=== PATIENT | female | born 1990 | race Caucasian/White ===

== ENCOUNTER 2018-06-21 11:09 | Emergency (ER) | payer BC, MEDICAID ==
[2018-06-21 11:41] VITALS: BP 160/85
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
[2018-06-21] MEDS ORDERED: LIDOCAINE JELLY 2% 5 ML TUBE TOP STA (13:51)
== END 2018-06-21 14:07 | disposition home or self-care (01) ==
LOC: ED 11:09
DX: T23.262A Burn of second degree of back of left hand, initial encounter (principal); T31.0 Burns involving less than 10% of body surface; X10.0XXA Contact with hot drinks, initial encounter
CPT/HCPCS: 99281; 99282; J3490

== ENCOUNTER 2019-04-13 08:00 | Outpatient (CLI) | payer BC, MEDICAID ==
[2019-04-13 13:39] LABS: BASOPHILS % (AUTO) 0.8 %; EOSINOPHILS # (AUTO) 0.1 10^3/uL (0.0-0.7); EOSINOPHILS % (AUTO) 1.3 %; LYMPHOCYTES # (AUTO) 1.6 10^3/uL (1.5-3.5); LYMPHOCYTES % (AUTO) 29.9 %; MEAN CORPUSCULAR HEMOGLOBIN 29.3 pg (27.0-31.0); MEAN CORPUSCULAR VOLUME 94.6 fL (81.0-99.0); MEAN PLATELET VOLUME 11.6 fL (7.9-10.8); MONOCYTES # (AUTO) 0.4 10^3/uL (0.0-1.0); MONOCYTES % (AUTO) 8.1 %; NEUTROPHILS # (AUTO) 3.2 10^3/uL (1.5-6.6); NEUTROPHILS % (AUTO) 59.7 %; PLT - PLATELET COUNT 219 10^3/uL (130-450); RED BLOOD COUNT 4.78 10^6/uL (4.20-5.40); RED CELL DISTRIBUTION WIDTH 12.6 % (12.0-15.0); WHITE BLOOD COUNT 5.3 x10^3/uL (4.8-10.8)
[2019-04-13 14:00] LABS: CALCIUM 9.7 mg/dL (8.5-10.3); CREATININE 0.9 mg/dL (0.4-1.0)
[2019-04-13 14:10] LABS: HEMOGLOBIN A1C 0.49 g/dL; HEMOGLOBIN A1C % 5.1 % (4.6-6.2)
== END 2019-04-13 08:30 | disposition home or self-care (01) ==
LOC: LAB.N 08:00
PROVIDERS: ATTEND Physician Assistant Medical
DX: R35.8 Other polyuria (principal); R42 Dizziness and giddiness
CPT/HCPCS: 36415; 80048; 83036; 84443; 85025

== ENCOUNTER 2019-11-14 14:31 | Outpatient (CLI) | payer BC | END 2019-11-14 14:32 | disposition home or self-care (01) | LOC: COV 14:31 | PROVIDERS: ATTEND Family Medicine | DX: R05 Cough (principal); R50.9 Fever, unspecified | CPT/HCPCS: 81599 ==

== ENCOUNTER 2020-12-23 17:54 | Outpatient (CLI) | payer BC ==
--- NOTE | 2020-12-24 08:25 | XRAY Report ---
PROCEDURE: Hand 3 View BILAT INDICATIONS: BILATERAL HAND PX TECHNIQUE: 3 views of the hand(s) acquired. COMPARISON: None FINDINGS: Bones: No fractures or dislocations. No suspicious bony lesions. Joint spaces are well preserved b ilaterally. No gross bony erosive changes are seen. Soft tissues: No suspicious soft tissue calcifications. IMPRESSION: Unremarkable radiographic examination of bilateral hands. No evidence of bony erosive changes. Reviewed by: Dylan Gore MD on 12/24/2020 8:24 AM PDT Approved by: Dylan Gore MD on 12/24/2020 8:24 AM PDT Station ID: [id number]
== END 2020-12-23 17:55 | disposition home or self-care (01) ==
LOC: DI.N 17:54
PROVIDERS: ATTEND Family Medicine
DX: M79.642 Pain in left hand (principal); M79.641 Pain in right hand

== ENCOUNTER 2020-12-24 17:10 | Outpatient (CLI) | payer BC ==
[2020-12-24 20:43] LABS: HCT - HEMATOCRIT 40.9 % (37.0-47.0); HGB - HEMOGLOBIN 13.2 g/dL (12.0-16.0); MEAN CORPUSCULAR HEMOGLOBIN 30.3 pg (27.0-31.0); MEAN CORPUSCULAR HGB CONC 32.3 g/dL (32.0-36.0); MEAN PLATELET VOLUME 11.1 fL (7.9-10.8); RED BLOOD COUNT 4.35 10^6/uL (4.20-5.40); RED CELL DISTRIBUTION WIDTH 12.8 % (12.0-15.0); WHITE BLOOD COUNT 7.2 x10^3/uL (4.8-10.8)
[2020-12-24 21:03] LABS: RHEUMATOID FACTOR NEGATIVE (Negative)
[2020-12-24 21:10] LABS: CRP - C-REACTIVE PROTEIN < 1.0 mg/dL (0-1.0); URIC ACID 4.1 mg/dL (2.6-7.2)
== END 2020-12-24 17:11 | disposition home or self-care (01) ==
LOC: LAB.N 17:10
PROVIDERS: ATTEND Family Medicine
DX: M79.642 Pain in left hand (principal); M79.641 Pain in right hand
CPT/HCPCS: 36415; 84550; 85025; 85027; 85651; 86140; 86200; 86430

== ENCOUNTER 2021-02-18 09:59 | Day surgery (SDC) | payer BC ==
[2021-02-18] MEDS ORDERED: LACTATED RINGERS 1,000 ML IV ONE (10:04)
[2021-02-18 10:30] LABS: HCG UR QUAL NEGATIVE
[2021-02-18] MEDS ORDERED: fentaNYL 250 MCG/5 ML VIAL ONE (12:36)
[2021-02-18] MEDS ORDERED: MIDAZOLAM 2 MG/2 ML VIAL ONE (12:36)
[2021-02-18 13:38] VITALS: BP 122/70
== END 2021-02-18 10:00 | disposition home or self-care (01) ==
LOC: SDS 09:59
PROVIDERS: ATTEND Surgery
DX: Z12.11 Encounter for screening for malignant neoplasm of colon (principal); Z80.0 Family history of malignant neoplasm of digestive organs; K64.8 Other hemorrhoids; K64.4 Residual hemorrhoidal skin tags
CPT/HCPCS: 45378; 81025; J3010; J7120

== ENCOUNTER 2021-12-16 14:27 | Outpatient (CLI) | payer BC ==
[2021-12-16 15:38] LABS: BASOPHILS % (AUTO) 0.5 %; EOSINOPHILS # (AUTO) 0.1 10^3/uL (0.0-0.7); EOSINOPHILS % (AUTO) 0.9 %; HCT - HEMATOCRIT 42.3 % (37.0-47.0); HGB - HEMOGLOBIN 13.8 g/dL (12.0-16.0); LYMPHOCYTES # (AUTO) 2.1 10^3/uL (1.5-3.5); LYMPHOCYTES % (AUTO) 28.1 %; MEAN CORPUSCULAR HGB CONC 32.6 g/dL (32.0-36.0); MEAN PLATELET VOLUME 9.7 fL (7.9-10.8); MONOCYTES # (AUTO) 0.7 10^3/uL (0.0-1.0); MONOCYTES % (AUTO) 8.9 %; NEUTROPHILS # (AUTO) 4.6 10^3/uL (1.5-6.6); NEUTROPHILS % (AUTO) 61.5 %; PLT - PLATELET COUNT 208 10^3/uL (130-450); RED CELL DISTRIBUTION WIDTH 12.7 % (12.0-15.0); WHITE BLOOD COUNT 7.6 x10^3/uL (4.8-10.8)
[2021-12-16 15:58] LABS: ALBUMIN 4.4 g/dL (3.2-5.5); ALBUMIN/GLOBULIN RATIO 1.3 (1.0-2.2); BILIRUBIN,TOTAL 0.7 mg/dL (0.2-1.0); CALCIUM 9.6 mg/dL (8.5-10.3); CREATININE 0.9 mg/dL (0.4-1.0); POTASSIUM 3.6 mmol/L (3.5-5.0); TOTAL PROTEIN 7.7 g/dL (6.7-8.2)
--- NOTE | 2021-12-17 07:19 | MRI Report ---
PROCEDURE: Brain W/O INDICATIONS: HEADACHE TECHNIQUE: Noncontrast axial T1 spin echo, axial T2 fast spin echo, sagittal and axial FLAIR, coronal T2 fast sp in echo, axial gradient echo, axial diffusion and ADC through the brain. COMPARISON: None. FINDINGS: Image quality: Excellent. CSF Spaces: Basal cisterns are patent. No extra-axial fluid collections. Ventricles are normal in size and shape. Brain: No intracranial masses or hemorrhage. Casanova/white matter interface is normal. Brainstem appe ars normal. Diffusion-weighted images demonstrate no acute ischemic insult. No chronic ischemic ins ults. Normal intravascular flow voids are present. Skull and face: Calvarium has normal marrow signal. Orbits appear normal. Sinuses: Sinuses and mastoids are clear. IMPRESSION: 1. No intracranial disease process. 2. No abnormal intracranial mass or mass effect. 3. No intracranial hemorrhage. Reviewed by: Deena Zavala MD, PhD on 12/17/2021 7:18 AM PDT Approved by: Deena Zavala MD, PhD on 12/17/2021 7:18 AM PDT Station ID: [id number]
== END 2021-12-16 14:28 | disposition home or self-care (01) ==
LOC: DI 14:27
PROVIDERS: ATTEND Physician Assistant
DX: R51.9 Headache, unspecified (principal)
CPT/HCPCS: 36415; 80053; 84146; 85025

== ENCOUNTER 2022-05-06 10:04 | Outpatient (CLI) | payer BC ==
[2022-05-06 10:29] LABS: BASOPHILS % (AUTO) 0.2 %; EOSINOPHILS % (AUTO) 0.4 %; HCT - HEMATOCRIT 39.7 % (37.0-47.0); HGB - HEMOGLOBIN 13.2 g/dL (12.0-16.0); LYMPHOCYTES # (AUTO) 1.4 10^3/uL (1.5-3.5); LYMPHOCYTES % (AUTO) 17.5 %; MEAN CORPUSCULAR HEMOGLOBIN 30.1 pg (27.0-31.0); MEAN CORPUSCULAR HGB CONC 33.2 g/dL (32.0-36.0); MEAN CORPUSCULAR VOLUME 90.6 fL (81.0-99.0); MONOCYTES # (AUTO) 0.4 10^3/uL (0.0-1.0); MONOCYTES % (AUTO) 4.8 %; NEUTROPHILS # (AUTO) 6.3 10^3/uL (1.5-6.6); NEUTROPHILS % (AUTO) 76.9 %; PLT - PLATELET COUNT 202 10^3/uL (130-450); RED BLOOD COUNT 4.38 10^6/uL (4.20-5.40); WHITE BLOOD COUNT 8.2 x10^3/uL (4.8-10.8)
[2022-05-06 10:44] LABS: ALBUMIN 3.7 g/dL (3.2-5.5); ALBUMIN/GLOBULIN RATIO 1.2 (1.0-2.2); BILIRUBIN,TOTAL 0.3 mg/dL (0.2-1.0); CALCIUM 9.5 mg/dL (8.5-10.3); CREATININE 0.5 mg/dL (0.4-1.0); POTASSIUM 3.8 mmol/L (3.5-5.0); TOTAL PROTEIN 6.9 g/dL (6.7-8.2)
[2022-05-06 11:10] LABS: BILIRUBIN,URINE NEGATIVE (NEGATIVE); GLUCOSE, URINE (UA) NEGATIVE (NEGATIVE); KETONES,URINE (UA) NEGATIVE (NEGATIVE); LEUKOCYTE ESTERASE, URINE MODERATE (NEGATIVE); NITRITE,URINE NEGATIVE (NEGATIVE); OCCULT BLOOD,URINE TRACE-INTA (NEGATIVE); PROTEIN,URINE NEGATIVE (NEGATIVE); UROBILINOGEN,URINE 0.2 (NORMAL) E.U./dL (NORMAL)
[2022-05-06 11:11] LABS: CLARITY,URINE CLOUDY (CLEAR)
[2022-05-06 11:21] LABS: BACTERIA,URINE Many /HPF (None Seen); SQUAMOUS EPITHELIAL CELL,UR MANY Squamous (<= Few); WBC,URINE >25 /HPF (0-5)
[2022-05-07 06:09] LABS: HBsAG SCREEN Negative (Negative); HCV AB <0.1 s/co ratio (0.0-0.9); HIV SCREEN 4TH GENERATION Non Reactive (Non Reactive); RPR Non Reactive (Non Reactive)
[2022-05-07 15:09] LABS: VARICELLA-ZOSTER AB IGG 862 index (Immune >165)
== END 2022-05-06 10:05 | disposition home or self-care (01) ==
LOC: LAB 10:04
PROVIDERS: ATTEND Obstetrics & Gynecology
DX: Z36.89 Encounter for other specified antenatal screening (principal); O99.891 Other specified diseases and conditions complicating pregnancy; R51.9 Headache, unspecified; R31.9 Hematuria, unspecified
CPT/HCPCS: 36415; 80053; 81001; 84146; 85025; 86592; 86762; 86787; 86803; 86850; 86900; 86901; 87086; 87340; 87389

== ENCOUNTER → 2022-05-07 | Outpatient (CLI) | payer BC ==
[2022-05-07 16:55] LABS: BILIRUBIN,URINE NEGATIVE (NEGATIVE); CLARITY,URINE CLEAR (CLEAR); GLUCOSE, URINE (UA) NEGATIVE (NEGATIVE); KETONES,URINE (UA) NEGATIVE (NEGATIVE); LEUKOCYTE ESTERASE, URINE TRACE (NEGATIVE); NITRITE,URINE NEGATIVE (NEGATIVE); OCCULT BLOOD,URINE NEGATIVE (NEGATIVE); PROTEIN,URINE NEGATIVE (NEGATIVE); UROBILINOGEN,URINE 0.2 (NORMAL) E.U./dL (NORMAL)
[2022-05-07 17:01] LABS: RBC,URINE 0-5 /HPF (0-5); SQUAMOUS EPITHELIAL CELL,UR FEW Squamous (<= Few)
[2022-05-07 17:02] LABS: BACTERIA,URINE Few /HPF (None Seen); CRYSTALS,URINE 3-5 Calcium Oxalate /LPF; MUCUS,URINE Marked Strands
== END ==
LOC: LAB 08:00
PROVIDERS: ATTEND Obstetrics & Gynecology
DX: R31.9 Hematuria, unspecified (principal)
CPT/HCPCS: 81001; 87086

== ENCOUNTER 2022-06-01 14:25 | Outpatient (CLI) | payer BC ==
--- NOTE | 2022-06-01 16:57 | Ultrasound Report ---
PROCEDURE: OB Detailed Eval INDICATIONS: SUPERVISION OF OUTSIDE/PRIOR DATING DATA: Last menstrual period (LMP): Unknown. LMP-based estimated date of delivery (RAYRAY): Not applicable. First dating scan (date and location): 03/25/2022. Estimated date of delivery (RAYRAY) from first dating scan: 10/22/2022. TECHNIQUE: Real-time scanning was performed of the fetus, with image documentation and biometric measurements. Endovaginal scanning: No COMPARISON: None. FINDINGS: General: A single living intrauterine gestation is present. Presentation: Variable Placenta: Placental position is posterior, without previa. Amniotic fluid index: 14 cm heart rate: 150 beats per minute. Maternal cervical canal: 3.9 cm long; normal length is 2.5 cm or more. biometrics: Biparietal diameter: 44 mm; 19 weeks 2 days Head circumference: 168 mm; 19 weeks 3 days Abdominal circumference: 145 mm; 19 weeks 5 days Femur length: 29 mm; 18 weeks 6 days Estimated gestational age from initial scan: 19 weeks 4 days. Composite gestational age from present scan: 19 weeks 2 days Estimated weight and percentile: 289 g, which is at the 34th percentile for gestational age Measurement variability in biometric dating: +/- 10 days from 12-20 weeks gestation, +/- 2 weeks from 20-30 weeks gestation, +/- 3 weeks at 30 weeks gestation or later. Anatomic survey: Neuro: Ventricles are normal at less than 10 mm. Cisterna magna is normal at 3-11 mm. Cerebellum i s normal in size and morphology. Nuchal skin fold: Normal at less than 6 mm between 14 and 20 weeks gestational age. Face: Nose and lips, facial profile are normal. Spine: No evidence for spina bifida. Heart: 4-chambered heart is present. Outflow tracts are not well seen. Diaphragm: Diaphragm is intact. Stomach: Left-sided stomach is present. Kidneys: No hydronephrosis. Normal is less than 5 mm in 2nd trimester, less than 7 mm in 3rd trimester. Cord: 3 vessel cord has orthotopic insertion. Bladder: Normal in size. Extremities: All 4 extremities are visualized. IMPRESSION: 1. Single living intrauterine gestation. 2. Appropriate interval growth. 3. Cardiac outflow tracts not well seen. Reviewed by: Lizize Prather MD on 06/01/2022 4:56 PM PDT Approved by: Lizzie Prather MD on 06/01/2022 4:56 PM PDT Station ID: [id number]
== END 2022-06-01 14:26 | disposition home or self-care (01) ==
LOC: DI 14:25
PROVIDERS: ATTEND Obstetrics & Gynecology
DX: Z34.82 Encounter for supervision of other normal pregnancy, second trimester (principal); Z36.89 Encounter for other specified antenatal screening

== ENCOUNTER 2022-06-09 13:22 | Outpatient (CLI) | payer BC ==
[2022-06-12 11:10] LABS: AFP MOM See interpretation. (.); AFP VALUE 33.4 ng/mL (.); DIA MOM See interpretation. (.); DIA VALUE 156.31 pg/mL (.); DSR (BY AGE) 1 IN 527 (.); DSR (SECOND TRIMESTER) 1 IN See interpretation. (.); GESTAT. AGE METHOD As provided (.); HCG MOM See interpretation. (.); HCG VALUE 14938 mIU/mL (.); OPEN SPINA BIFIDA RISK 1 IN See interpretation. (.); RESULTS Report (.); TEST RESULTS See interpretation. (.); TRISOMY 18 RISK See interpretation. (.); UE3 MOM See interpretation. (.); UE3 VALUE 2.21 ng/mL (.)
== END 2022-06-09 13:23 | disposition home or self-care (01) ==
LOC: LAB 13:22
PROVIDERS: ATTEND Obstetrics & Gynecology
DX: Z34.80 Encounter for supervision of other normal pregnancy, unspecified trimester (principal)
CPT/HCPCS: 36416; 81511

== ENCOUNTER 2022-06-17 14:31 | Outpatient (CLI) | payer BC ==
--- NOTE | 2022-06-17 17:25 | Ultrasound Report ---
PROCEDURE: OB F/U or Repeat INDICATIONS: SUPERVISION OF OUTSIDE/PRIOR DATING DATA: Last menstrual period (LMP): Unknown. LMP-based estimated date of delivery (RAYRAY): Unknown. First dating scan (date and location): 03/25/2022. Estimated date of delivery (RAYRAY) from first dating scan: 10/22/2022. The below data below was generated using the ultrasound RAYRAY of 10/22/2022 TECHNIQUE: Real-time scanning was performed of the fetus, with image documentation and biometric measurements. COMPARISON: 06/01/2022. FINDINGS: General: A single living intrauterine gestation is present. Presentation: Breech Placenta: Placental position is posterior, without previa. Amniotic fluid index: 14.9 cm, normal for gestational age. Largest pocket 4.8 cm. heart rate: 162 beats per minute. Maternal cervical canal: 6.3 cm long; normal length is 2.5 cm or more. Estimated gestational age from initial scan: 21 weeks 6 days Other: LVOT and four-chamber view of the heart are within normal limits. The RVOT is again not well s een due to positioning. IMPRESSION: 1. Perez living intrauterine at 21 weeks 6 days based on prior ultrasound. 2. Normal placenta and amniotic fluid. 3. Four-chamber view of the heart and LVOT are within normal limits. The RVOT is again seen due to position. Recommend follow-up OB ultrasound. Reviewed by: Wes Rod MD on 06/17/2022 5:24 PM PDT Approved by: Wes Rod MD on 06/17/2022 5:24 PM PDT Station ID: [id number]
== END 2022-06-17 14:32 | disposition home or self-care (01) ==
LOC: DI 14:31
PROVIDERS: ATTEND Obstetrics & Gynecology
DX: Z34.82 Encounter for supervision of other normal pregnancy, second trimester (principal); Z3A.21 21 weeks gestation of pregnancy

== ENCOUNTER 2022-07-03 15:08 | Outpatient (CLI) | payer BC ==
--- NOTE | 2022-07-03 16:59 | Ultrasound Report ---
PROCEDURE: OB F/U or Repeat INDICATIONS: SUPERVISION OF evaluate RVOT. Previous survey with suboptimal RVOT view . OUTSIDE/PRIOR DATING DATA: Last menstrual period (LMP): Unknown. LMP-based estimated date of delivery (RAYRAY): Unknown. First dating scan (date and location): 03/25/2022. Estimated date of delivery (RAYRAY) from first dating scan: 10/22/2022. The below data below was generated using the ultrasound RAYRAY of 10/22/2022 TECHNIQUE: Real-time scanning was performed of the fetus, with image documentation and biometric measurements. Endovaginal scanning: Not performed COMPARISON: 06/01/2022, 06/17/2022 FINDINGS: General: A single living intrauterine gestation is present. Presentation: Transverse, variable Placenta: Placental position is posterior, without previa. Amniotic fluid index: 13.6 cm, within normal limits for gestational age. Largest pocket is 3.96 cm heart rate: 141 beats per minute. Maternal cervical canal: 4.8 cm long; normal length is 2.5 cm or more. Other: RVOT well evaluated, within normal limits. IMPRESSION: Living late second trimester intrauterine with no evidence of complications. N ormal RVOT completes the survey. Reviewed by: Daniel Rivers MD on 07/03/2022 4:57 PM PST Approved by: Daniel Rivers MD on 07/03/2022 4:57 PM PST Station ID: [id number]
== END 2022-07-03 15:09 | disposition home or self-care (01) ==
LOC: DI 15:08
PROVIDERS: ATTEND Obstetrics & Gynecology
DX: Z34.82 Encounter for supervision of other normal pregnancy, second trimester (principal); Z3A.00 Weeks of gestation of pregnancy not specified

== ENCOUNTER 2022-07-22 10:38 | Outpatient (CLI) | payer BC ==
[2022-07-22 12:14] LABS: HCT - HEMATOCRIT 39.9 % (37.0-47.0); HGB - HEMOGLOBIN 13.1 g/dL (12.0-16.0); MEAN CORPUSCULAR HGB CONC 32.8 g/dL (32.0-36.0); MEAN CORPUSCULAR VOLUME 91.3 fL (81.0-99.0); MEAN PLATELET VOLUME 10.1 fL (7.9-10.8); RED BLOOD COUNT 4.37 10^6/uL (4.20-5.40); RED CELL DISTRIBUTION WIDTH 12.4 % (12.0-15.0); WHITE BLOOD COUNT 10.3 x10^3/uL (4.8-10.8)
[2022-07-22 12:21] LABS: CREATININE,URINE 348.8 mg/dL; PROTEIN/CREATININE RATIO,URINE 0.1 (<=0.2)
[2022-07-22 12:31] LABS: ALBUMIN 3.4 g/dL (3.2-5.5); ALBUMIN/GLOBULIN RATIO 0.9 (1.0-2.2); BILIRUBIN,TOTAL 0.3 mg/dL (0.2-1.0); CALCIUM 9.2 mg/dL (8.5-10.3); CREATININE 0.8 mg/dL (0.4-1.0); POTASSIUM 3.9 mmol/L (3.5-5.0)
== END 2022-07-22 10:39 | disposition home or self-care (01) ==
LOC: LAB 10:38
PROVIDERS: ATTEND Obstetrics & Gynecology
DX: O99.891 Other specified diseases and conditions complicating pregnancy (principal); R03.0 Elevated blood-pressure reading, without diagnosis of hypertension; Z36.89 Encounter for other specified antenatal screening
CPT/HCPCS: 36415; 80053; 82570; 82950; 84156; 85027

== ENCOUNTER 2022-08-19 12:34 | Outpatient (CLI) | payer BC ==
[2022-08-19 12:47] LABS: HCT - HEMATOCRIT 40.4 % (37.0-47.0); HGB - HEMOGLOBIN 13.1 g/dL (12.0-16.0); MEAN CORPUSCULAR HEMOGLOBIN 29.5 pg (27.0-31.0); MEAN CORPUSCULAR HGB CONC 32.4 g/dL (32.0-36.0); MEAN PLATELET VOLUME 10.1 fL (7.9-10.8); RED BLOOD COUNT 4.44 10^6/uL (4.20-5.40); RED CELL DISTRIBUTION WIDTH 12.5 % (12.0-15.0); WHITE BLOOD COUNT 11.8 x10^3/uL (4.8-10.8)
[2022-08-19 12:55] LABS: CREATININE,URINE 31.7 mg/dL; TOTAL PROTEIN,URINE TIMED < 6 mg/dL
[2022-08-19 12:59] LABS: ALBUMIN 3.3 g/dL (3.2-5.5); ALBUMIN/GLOBULIN RATIO 0.9 (1.0-2.2); BILIRUBIN,TOTAL 0.5 mg/dL (0.2-1.0); CREATININE 0.6 mg/dL (0.4-1.0); POTASSIUM 3.9 mmol/L (3.5-5.0); TOTAL PROTEIN 6.9 g/dL (6.7-8.2)
== END 2022-08-19 12:35 | disposition home or self-care (01) ==
LOC: LAB 12:34
PROVIDERS: ATTEND Obstetrics & Gynecology
DX: R03.0 Elevated blood-pressure reading, without diagnosis of hypertension (principal)
CPT/HCPCS: 36415; 80053; 82570; 84156; 85027

== ENCOUNTER 2022-09-12 09:04 | Outpatient (CLI) | payer BC ==
[2022-09-12] MEDS ORDERED: LABETALOL 100 MG TABLET PO ONE (10:00)
[2022-09-12] MEDS ORDERED: LABETALOL 100 MG TABLET PO SCH (10:00)
[2022-09-12 10:08] LABS: BASOPHILS % (AUTO) 0.3 %; EOSINOPHILS % (AUTO) 0.4 %; HGB - HEMOGLOBIN 13.1 g/dL (12.0-16.0); LYMPHOCYTES # (AUTO) 1.7 10^3/uL (1.5-3.5); LYMPHOCYTES % (AUTO) 15.5 %; MEAN CORPUSCULAR HEMOGLOBIN 29.5 pg (27.0-31.0); MEAN CORPUSCULAR HGB CONC 32.8 g/dL (32.0-36.0); MEAN CORPUSCULAR VOLUME 90.1 fL (81.0-99.0); MEAN PLATELET VOLUME 10.4 fL (7.9-10.8); MONOCYTES # (AUTO) 0.6 10^3/uL (0.0-1.0); MONOCYTES % (AUTO) 5.2 %; NEUTROPHILS # (AUTO) 8.5 10^3/uL (1.5-6.6); NEUTROPHILS % (AUTO) 78.2 %; PLT - PLATELET COUNT 200 10^3/uL (130-450); RED BLOOD COUNT 4.44 10^6/uL (4.20-5.40); RED CELL DISTRIBUTION WIDTH 12.6 % (12.0-15.0); WHITE BLOOD COUNT 10.8 x10^3/uL (4.8-10.8)
[2022-09-12 10:26] LABS: ALBUMIN 2.9 g/dL (3.2-5.5); ALBUMIN/GLOBULIN RATIO 0.9 (1.0-2.2); BILIRUBIN,TOTAL 0.5 mg/dL (0.2-1.0); CREATININE 0.6 mg/dL (0.4-1.0); POTASSIUM 3.4 mmol/L (3.5-5.0); TOTAL PROTEIN 6.3 g/dL (6.7-8.2)
[2022-09-12 10:32] LABS: CREATININE,URINE 17.6 mg/dL; TOTAL PROTEIN,URINE TIMED < 6 mg/dL
[2022-09-12 10:45] VITALS: BP 148/84
--- NOTE | 2022-09-12 11:00 | PROVIDER PROGRESS NOTE ---
- HPI Chief Complaint: Hypertension/PIH Current : Vital Signs Temperature 97.9 F 09/12/22 09:08 Heart Rate 96 09/12/22 09:08 Respiratory Rate 16 09/12/22 09:08 Blood Pressure 148/91 H 09/12/22 09:08 Temperature 97.9 F 09/12/22 09:08 Heart Rate 96 09/12/22 09:08 Respiratory Rate 16 09/12/22 09:08 Blood Pressure 148/84 H 09/12/22 10:52 O2 Saturation If not protocol: Oxygen Flow, liters/minute - Procedures OB Procedure Performed: NST Diagnosis/Indication for NST: Gestational Hypertension NST Procedure: NST Procedure Start Time 10:15 Stop Time 10:42 EFM: 140s, moderate variability, positive accelerations 15x15, no decelerations [place]: no contractions NST reactive/Cat 1 Performed and read 09/12/22 Service Date of procedure: 09/12/22 - Plan Plan: 31yo at 34.3w presented to [facility] for scheduled NST for recently diagnosed gestational hypertension. Feels well. Denies headache, visual changes, abdominal pain, or n/v. Good movement. BP today 148/91, 150/86. Discussed starting medication. Labetalol 300mg po given in triage, tolerated well. Repeat BP 148/84. VS reviewed GEN: NAD CV: Regular rate Resp: Breathing unlabored Abd: soft, nt Ext: nt NST reactive 31yo at 34.3w with gestational hypertension - NST reactive - PET labs normal today - Start labetalol 300mg q8h - Patient may monitor BP, if increases will add nifedipine - Growth US ordered - Follow up as scheduled in office, continue NSTs - She is planning for IOL after 37 weeks
== END 2022-09-12 11:05 | disposition home or self-care (01) ==
LOC: WFO 09:04 → FBP 09:38 → WFO 11:05
PROVIDERS: ATTEND Obstetrics & Gynecology
DX: O13.3 Gestational [pregnancy-induced] hypertension without significant proteinuria, third trimester (principal); Z3A.34 34 weeks gestation of pregnancy
CPT/HCPCS: 36415; 59025; 80053; 82570; 84156; 85025; 99215; A9270

== ENCOUNTER 2022-09-15 21:13 | Outpatient (CLI) | payer BC ==
--- NOTE | 2022-09-16 10:55 | Ultrasound Report ---
PROCEDURE: OB F/U or Repeat INDICATIONS: THIRD TRIMESTER GESTATIONAL HYPERTENSION OUTSIDE/PRIOR DATING DATA: Last menstrual period (LMP): Unknown. LMP-based estimated date of delivery (RAYRAY): Not applicable. First dating scan (date and location): 03/25/2022. Estimated date of delivery (RAYRAY) from first dating scan: 10/22/2022. The below data below was generated using the ultrasound RAYRAY of 10/22/2022 TECHNIQUE: Real-time scanning was performed of the fetus, with image documentation and biometric measurements. Endovaginal scanning: Not performed COMPARISON: Several prior studies, the most recent from 09/10/2022 FINDINGS: General: A single living intrauterine gestation is present. Presentation: Vertex Placenta: Placental position is posterior, without previa. Amniotic fluid index: 10.2 cm, largest pocket is 3.3 cm, normal for gestational age. heart rate: 136 beats per minute. Maternal cervical canal: Not seen biometrics: Biparietal diameter: 8.3 cm, 33 weeks, 4 days Head circumference: 31.4 cm, 35 weeks, 1 day Abdominal circumference: 29.0 cm, 33 weeks, 0 days Femur length: 6.3 cm, 32 weeks, 4 days Estimated gestational age from initial scan: 34 weeks, 5 days. Composite gestational age from present scan: 33 weeks, 4 days Estimated weight and percentile: 2139 g, 11th percentile Measurement variability in biometric dating: +/- 10 days from 12-20 weeks gestation, +/- 2 weeks from 20-30 weeks gestation, +/- 3 weeks at 30 weeks gestation or more. Other: Incidental note of nuchal cord. IMPRESSION: 1. Single living intrauterine in vertex presentation. 2. Estimated weight at the 11th percentile. 3. Composite gestational age by today's measurements 1 week and 1 day behind the initially assigned g estational age. 4. Normal amniotic fluid volume. Reviewed by: Marilia Ye MD on 09/16/2022 9:54 AM [facility] Approved by: Marilia Ye MD on 09/16/2022 9:54 AM [facility] Station ID: [id number]
== END 2022-09-15 21:14 | disposition home or self-care (01) ==
LOC: DI 21:13
PROVIDERS: ATTEND Obstetrics & Gynecology
DX: O13.3 Gestational [pregnancy-induced] hypertension without significant proteinuria, third trimester (principal); Z3A.33 33 weeks gestation of pregnancy

== ENCOUNTER 2022-09-16 09:28 | Outpatient (CLI) | payer BC ==
[2022-09-16 09:49] VITALS: BP 139/93
--- NOTE | 2022-09-16 10:16 | PROCEDURE REPORT ---
- HPI Diagnosis/Indication for NST: Gestational Hypertension Current EDU 10/21/22 Gestation 35 Weeks and 0 Days 3 Para 2 Vital Signs Temperature 99.0 F 09/16/22 09:35 Heart Rate 93 09/16/22 09:35 Respiratory Rate 18 09/16/22 09:35 Blood Pressure 139/93 H 09/16/22 09:35 Temperature 99.0 F 09/16/22 09:35 Heart Rate 93 09/16/22 09:35 Respiratory Rate 18 09/16/22 09:35 Blood Pressure 139/93 H 09/16/22 09:35 O2 Saturation If not protocol: Oxygen Flow, liters/minute - NST Procedure NST Procedure Start Date 09/16/22 Start Time 09:39 Stop Time 09:59 Patient States Movement Yes - Results and Plan Findings/Impression: Patient is a 31-year-old -0-0-2 at 35 weeks 0 days gestation here for scheduled NST. NST Performed 09/16/2022 NST Read 09/16/2022 FHT: 145 bpm baseline, moderate variability, accelerations present, no decelerations. Reactive NST [place]: Quiescent Diagnosis 35 weeks gestation Gestational hypertension Continue with twice weekly NST.
== END 2022-09-16 10:15 | disposition home or self-care (01) ==
LOC: WFO 09:28 → FBP 09:30 → WFO 10:15
PROVIDERS: ATTEND Obstetrics & Gynecology
DX: O13.3 Gestational [pregnancy-induced] hypertension without significant proteinuria, third trimester (principal); Z3A.35 35 weeks gestation of pregnancy
CPT/HCPCS: 59025

== ENCOUNTER 2022-09-17 07:47 | Outpatient (CLI) | payer BC ==
--- NOTE | 2022-09-17 14:00 | Ultrasound Report ---
PROCEDURE: OB Biophysical Profile INDICATIONS: GESTATIONAL HYPERTENSION OUTSIDE/PRIOR DATING DATA: Last menstrual period (LMP): Unknown. LMP-based estimated date of delivery (RAYRAY): Not applicable. First dating scan (date and location): 03/25/2022. Estimated date of delivery (RAYRAY) from first dating scan: 10/22/2022. The below data below was generated using the ultrasound generated RAYRAY of 3-23 TECHNIQUE: Real-time scanning was performed of the fetus, with image documentation and biometric della surements. Biophysical profile was also obtained. Endovaginal scanning: Not performed COMPARISON: 09/15/2022, 09/10/2022, 07/03/2022, 06/17/2022, 06/01/2022, 03/25/2022 FINDINGS: General: A single living intrauterine gestation is present. Presentation: Vertex Placenta: Placental position is maternal left, without previa. Amniotic fluid index: 7.5 cm, low for gestational age at the 4th percentile. Largest pocket 4.1 cm. heart rate: 140 beats per minute. Maternal cervical canal: 3.8 cm long and closed; normal length is 2.5 cm or more. Biophysical profile: Tone: 2 points. Movement: 2 points. Respiration: 2 points. Largest pocket of fluid: 2 points. Umbilical artery Doppler: S/D ratios are 2.3, 2.0, and 2.4 at the placenta, mid segment, and u mbilicus, respectively. IMPRESSION: Single living intrauterine gestation with oligohydramnios. Cord Doppler S/D ratios above. Reviewed by: Kenneth Goodman MD on 09/17/2022 1:59 PM PST Approved by: Kenneth Goodman MD on 09/17/2022 1:59 PM PST Station ID: [id number]
== END 2022-09-17 07:48 | disposition home or self-care (01) ==
LOC: DI 07:47
PROVIDERS: ATTEND Obstetrics & Gynecology
DX: O41.03X0 Oligohydramnios, third trimester, not applicable or unspecified (principal); O13.3 Gestational [pregnancy-induced] hypertension without significant proteinuria, third trimester; Z3A.00 Weeks of gestation of pregnancy not specified

== ENCOUNTER 2022-09-21 09:17 | Outpatient (CLI) | payer BC ==
[2022-09-21 10:15] LABS: BASOPHILS % (AUTO) 0.3 %; EOSINOPHILS # (AUTO) 0.1 10^3/uL (0.0-0.7); EOSINOPHILS % (AUTO) 0.4 %; HCT - HEMATOCRIT 39.5 % (37.0-47.0); HGB - HEMOGLOBIN 12.9 g/dL (12.0-16.0); LYMPHOCYTES # (AUTO) 1.5 10^3/uL (1.5-3.5); LYMPHOCYTES % (AUTO) 13.7 %; MEAN CORPUSCULAR HEMOGLOBIN 29.3 pg (27.0-31.0); MEAN CORPUSCULAR HGB CONC 32.7 g/dL (32.0-36.0); MEAN CORPUSCULAR VOLUME 89.8 fL (81.0-99.0); MEAN PLATELET VOLUME 10.7 fL (7.9-10.8); MONOCYTES # (AUTO) 0.6 10^3/uL (0.0-1.0); MONOCYTES % (AUTO) 5.3 %; NEUTROPHILS % (AUTO) 79.9 %; PLT - PLATELET COUNT 218 10^3/uL (130-450); RED CELL DISTRIBUTION WIDTH 12.4 % (12.0-15.0); WHITE BLOOD COUNT 11.2 x10^3/uL (4.8-10.8)
[2022-09-21 10:27] LABS: ALBUMIN 2.9 g/dL (3.2-5.5); ALBUMIN/GLOBULIN RATIO 0.9 (1.0-2.2); BILIRUBIN,TOTAL 0.5 mg/dL (0.2-1.0); CALCIUM 8.7 mg/dL (8.5-10.3); CREATININE 0.5 mg/dL (0.4-1.0); POTASSIUM 3.3 mmol/L (3.5-5.0); TOTAL PROTEIN 6.2 g/dL (6.7-8.2)
[2022-09-21 10:30] VITALS: BP 143/80
[2022-09-21 10:55] LABS: CREATININE,URINE 37.4 mg/dL; TOTAL PROTEIN,URINE TIMED < 6 mg/dL
--- NOTE | 2022-09-21 11:30 | PROCEDURE REPORT ---
- HPI Diagnosis/Indication for NST: Gestational Hypertension Vital Signs Temperature 98.2 F 09/21/22 09:34 Heart Rate 103 H 09/21/22 09:34 Respiratory Rate 18 09/21/22 09:34 Blood Pressure 136/94 H 09/21/22 09:34 O2 Saturation 99 09/21/22 09:34 Temperature 98.2 F 09/21/22 09:36 Heart Rate 93 09/21/22 10:28 Respiratory Rate 16 09/21/22 10:28 Blood Pressure 143/80 H 09/21/22 10:28 O2 Saturation 99 09/21/22 10:28 If not protocol: Oxygen Flow, liters/minute - NST Procedure NST Procedure Start Time 09:39 Stop Time 10:20 FHT: Category 1 Baseline heart rate: 140s Moderate variability Present acceleration Absent deceleration 31yo presented to [facility] for scheduled NST for recently diagnosed gestational hypertension. Feels well. Denies headache, visual changes, abdominal pain, or n/v. Good movement. BP today 148/91, 150/86. Has been on Labetalol 300mg po, tolerated well. Repeat BP 148/80 140/84. VS reviewed GEN: NAD CV: Regular rate Resp: Breathing unlabored Abd: soft, nt Ext: nt NST reactive 31yo at 34.3w with gestational hypertension - NST reactive - PET labs normal today - labetalol 300mg q8h - Patient may monitor BP, if increases will add nifedipine - Follow up as scheduled in office, continue NSTs and BPP - She is planning for IOL after 37 weeks ( 09-30-22) - Results and Plan Findings/Impression: Reactive Plan: As scheduled
== END 2022-09-21 11:35 | disposition home or self-care (01) ==
LOC: WFO 09:17 → FBP 09:18 → WFO 11:35
PROVIDERS: ATTEND Obstetrics & Gynecology
DX: O13.3 Gestational [pregnancy-induced] hypertension without significant proteinuria, third trimester (principal); Z3A.34 34 weeks gestation of pregnancy
CPT/HCPCS: 36415; 59025; 80053; 82570; 84156; 85025; 99215

== ENCOUNTER 2022-09-23 10:04 | Outpatient (CLI) | payer BC ==
[2022-09-23 10:26] VITALS: BP 140/87
--- NOTE | 2022-09-23 10:38 | PROCEDURE REPORT ---
- HPI Diagnosis/Indication for NST: Gestational Hypertension Current EDU 10/21/22 Gestation 36 Weeks and 0 Days 3 Para 2 Vital Signs Temperature 98.2 F 09/23/22 10:14 Heart Rate 83 09/23/22 10:14 Respiratory Rate 16 09/23/22 10:14 Blood Pressure 140/87 H 09/23/22 10:14 Temperature 98.2 F 09/23/22 10:14 Heart Rate 83 09/23/22 10:14 Respiratory Rate 16 09/23/22 10:14 Blood Pressure 140/87 H 09/23/22 10:14 O2 Saturation If not protocol: Oxygen Flow, liters/minute - NST Procedure NST Procedure Start Date 09/23/22 Start Time 10:16 Stop Time 10:10 Vibroacoustic Stimulation Used No Patient States Movement Yes - Results and Plan Plan: Patient is a 31-year-old -0-0-2 at 36 weeks 0 days gestation here for scheduled NST. NST Performed 09/23/2022 NST Read 09/23/2022 FHT: 130 bpm baseline, moderate variability, accelerations present, no decelerations. Reactive NST [place]: Quiescent Diagnosis 36 weeks gestation Gestational hypertension Continue with twice weekly NST.
== END 2022-09-23 10:50 | disposition home or self-care (01) ==
LOC: WFO 10:04 → FBP 10:06 → WFO 10:50
PROVIDERS: ATTEND Obstetrics & Gynecology
DX: O13.3 Gestational [pregnancy-induced] hypertension without significant proteinuria, third trimester (principal); Z3A.36 36 weeks gestation of pregnancy
CPT/HCPCS: 59025

== ENCOUNTER 2022-09-23 14:39 | Outpatient (CLI) | payer BC ==
--- NOTE | 2022-09-23 17:38 | Ultrasound Report ---
PROCEDURE: OB Biophysical Profile INDICATIONS: GESTATIONAL HYPERTENSION OUTSIDE/PRIOR DATING DATA: Last menstrual period (LMP): Unknown. LMP-based estimated date of delivery (RAYRAY): Unknown. First dating scan (date and location): 03/25/2022. Estimated date of delivery (RAYRAY) from first dating scan: 10-22-22. The below data below was generated using the ultrasound RAYRAY of 10-22-22 TECHNIQUE: Real-time scanning was performed of the fetus, with image documentation and biometric della surements. Biophysical profile was also obtained. COMPARISON: OB ultrasound 09/17/2022 FINDINGS: General: A single living intrauterine gestation is present. Presentation: Vertex Placenta: Placental position is posterior, without previa. Amniotic fluid index: 7 cm, 3.1 percentile for gestational age. Largest pocket 2.3 cm heart rate: 1:30 beats per minute. Maternal cervical canal: 4.1 cm long; normal length is 2.5 cm or more. biometrics: Estimated gestational age from initial scan: 35 weeks 6 days Biophysical profile: Tone: 2 points. Movement: 2 points. Respiration: 2 points. Largest pocket of fluid: 2 points. Umbilical artery Doppler: 2.2, 2.2, 2.3 at the cord insertion, mid and umbilical regions respectivel y. IMPRESSION: Single live anterior with a gestational age of 35 weeks 6 days. Persistent oligohydramnios measuring 3.1 percentile, compared to 4th percentile on prior exam. Reviewed by: Yareli Pichardo MD on 09/23/2022 5:36 PM PST Approved by: Yareli Pichardo MD on 09/23/2022 5:36 PM PST Station ID: [id number]
== END 2022-09-23 14:40 | disposition home or self-care (01) ==
LOC: DI 14:39
PROVIDERS: ATTEND Obstetrics & Gynecology
DX: O13.3 Gestational [pregnancy-induced] hypertension without significant proteinuria, third trimester (principal); Z3A.35 35 weeks gestation of pregnancy

== ENCOUNTER 2022-09-24 14:00 | Outpatient (CLI) | payer BC | END 2022-09-24 23:59 | disposition home or self-care (01) | LOC: LAB.WC 14:00 | PROVIDERS: ATTEND Obstetrics & Gynecology | DX: Z36.85 Encounter for antenatal screening for Streptococcus B (principal) | CPT/HCPCS: 87797 ==

== ENCOUNTER 2022-09-28 15:56 | Outpatient (CLI) | payer BC ==
--- NOTE | 2022-09-28 16:50 | PROCEDURE REPORT ---
- HPI Diagnosis/Indication for NST: Gestational Hypertension - NST Procedure NST Procedure Start Time 10:16 Stop Time 10:40 Reactive NST at 36+5 baseline 135, moderate variability, +accels, no decels Gestational hypertension - Results and Plan Plan: Reactive NST at 36+5 Gestational hypertension BP today normal Patient scheduled for induction on Wednesday
[2022-09-28 17:43] VITALS: BP 118/81
== END 2022-09-28 16:45 | disposition home or self-care (01) ==
LOC: WFO 15:56 → FBP 15:57 → WFO 16:45
PROVIDERS: ATTEND Obstetrics & Gynecology Obstetrics
DX: O13.3 Gestational [pregnancy-induced] hypertension without significant proteinuria, third trimester (principal); Z3A.36 36 weeks gestation of pregnancy
CPT/HCPCS: 59025; 99212

== ENCOUNTER 2022-09-28 16:53 | Outpatient (CLI) | payer BC ==
--- NOTE | 2022-09-29 11:17 | Ultrasound Report ---
PROCEDURE: OB Biophysical Profile INDICATIONS: GESTATIONAL HYPERTENSION OUTSIDE/PRIOR DATING DATA: Last menstrual period (LMP): Unknown. First dating scan (date and location): 03/25/2022. Estimated date of delivery (RAYRAY) from first dating scan: 10/22/2022. The below data below was generated using the ultrasound RAYRAY of 10/22/2022 TECHNIQUE: Real-time scanning was performed of the fetus, with image documentation and biometric della surements. Biophysical profile was also obtained. Endovaginal scanning: Not performed COMPARISON: 09/23/2022. FINDINGS: General: A single living intrauterine gestation is present. Presentation: Vertex Placenta: Placental position is posterior, without previa. Amniotic fluid index: 8.9 cm, within normal limits heart rate: 153 beats per minute. Maternal cervical canal: Not well visualized. Estimated gestational age by initial ultrasound: 36 weeks 4 days Biophysical profile: Tone: 2 points. Movement: 2 points. Respiration: 2 points. Largest pocket of fluid: 2 points. Umbilical artery Doppler: S:D ratios of 2.09-2.19, within normal limits. Antegrade diastolic flow ma intained. IMPRESSION: 1. Single living intrauterine in vertex presentation. 2. Biophysical profile score 8/8. 3. Amniotic fluid index of 8.9. Reviewed by: Konrad Gayle MD on 09/29/2022 11:16 AM PST Approved by: Konrad Gayle MD on 09/29/2022 11:16 AM PST Station ID: [id number]
== END 2022-09-28 16:54 | disposition home or self-care (01) ==
LOC: DI 16:53
PROVIDERS: ATTEND Obstetrics & Gynecology
DX: O13.3 Gestational [pregnancy-induced] hypertension without significant proteinuria, third trimester (principal); Z3A.36 36 weeks gestation of pregnancy

== ENCOUNTER 2022-09-30 07:30 | Inpatient (IN) | payer BC ==
[2022-09-30 08:05] LABS: BASOPHILS % (AUTO) 0.3 %; EOSINOPHILS # (AUTO) 0.1 10^3/uL (0.0-0.7); EOSINOPHILS % (AUTO) 0.7 %; HCT - HEMATOCRIT 39.2 % (37.0-47.0); HGB - HEMOGLOBIN 12.9 g/dL (12.0-16.0); LYMPHOCYTES # (AUTO) 1.9 10^3/uL (1.5-3.5); LYMPHOCYTES % (AUTO) 18.1 %; MEAN CORPUSCULAR HEMOGLOBIN 29.5 pg (27.0-31.0); MEAN CORPUSCULAR HGB CONC 32.9 g/dL (32.0-36.0); MEAN CORPUSCULAR VOLUME 89.7 fL (81.0-99.0); MEAN PLATELET VOLUME 10.9 fL (7.9-10.8); MONOCYTES # (AUTO) 0.7 10^3/uL (0.0-1.0); MONOCYTES % (AUTO) 6.3 %; NEUTROPHILS % (AUTO) 74.2 %; PLT - PLATELET COUNT 206 10^3/uL (130-450); RED BLOOD COUNT 4.37 10^6/uL (4.20-5.40); RED CELL DISTRIBUTION WIDTH 12.4 % (12.0-15.0); WHITE BLOOD COUNT 10.7 x10^3/uL (4.8-10.8)
[2022-09-30] MEDS ORDERED: TERBUTALINE 1 MG/ML VIAL SUBQ PRN (08:34)
[2022-09-30] MEDS ORDERED: LABETALOL 20 MG/4 ML SYRINGE IVP PRN ×3 (08:34)
[2022-09-30] MEDS ORDERED: OXYTOCIN/SODIUM CHLORIDE 500 ML IV PRN (08:34)
[2022-09-30] MEDS ORDERED: miSOPROStoL 200 MCG TABLET PR PRN (08:34)
[2022-09-30] MEDS ORDERED: lidocaine 1% 20 ML MDV ID PRN (08:34)
[2022-09-30] MEDS ORDERED: TRANEXAMIC ACID IN NACL 1,000 MG/100 ML BAG IV PRN (08:34)
[2022-09-30] MEDS ORDERED: miSOPROStoL 200 MCG TABLET BC PRN (08:34)
[2022-09-30] MEDS ORDERED: SODIUM CHLORIDE FLUSH 0.9% 10 ML SYRINGE IVP PRN (08:34)
[2022-09-30] MEDS ORDERED: NIFEdipine 10 MG CAPSULE PO PRN (08:34)
[2022-09-30] MEDS ORDERED: METHYLERGONOVINE 0.2 MG/ML VIAL IM PRN (08:34)
[2022-09-30] MEDS ORDERED: OXYTOCIN 10 UNIT/ML VIAL IM PRN (08:34)
[2022-09-30] MEDS ORDERED: hydrALAZINE INJ 20 MG/ML VIAL IVP PRN ×2 (08:34)
[2022-09-30] MEDS ORDERED: fentaNYL 100 MCG/2 ML VIAL IVP PRN (08:34)
[2022-09-30] MEDS ORDERED: CARBOPROST TROMETHAMINE 250 MCG/ML AMP IM PRN (08:34)
--- NOTE | 2022-09-30 08:40 | HISTORY & PHYSICAL EXAMINATION ---
Admit History - : 3 Parity: 2 Complications This : positive: induced HTN Smoking Status: Never smoker - Mother's Labs Mother's Blood Type: positive: A Mother's RH: positive: Positive GBS: positive: Group B Strep Positive Rubella Status: positive: Immune - Other Maternal History Other Maternal History: HPI: 31-year-old -0-0-2 at 37 weeks 0 days gestation admitted for induction of labor secondary to gestational hypertension. She has good movement. Denies loss of fluid. No ROBIN/BV or RUQP. No vaginal bleeding. Denies nausea and vomiting. Denies urinary urgency or dysuria. All other symptoms reviewed and were negative except per HPI. Course LMP: 01/14/2022 RAYRAY by LMP: 10/21/2022 US Date 03/25/2022, US Age 9 weeks 6 days, RAYRAY by ultrasound: 10/22/2022 Final RAYRAY: 10/21/2022 GERD: Medication seems not to be working so she stopped. Currently managing with lifestyle modification and TUMS. Gestational hypertension: Diagnosed at 33 weeks. Continue NST/BPP. Labs so far normal. Patient was started on nifedipine 30 mg once daily Pre- Weight:230 Recommended weight gain: 11 to 20 pounds. BMI: 34.59 A pos/Rubella immune VZV:immune Genetic testing:Quad screen- negative FAS:EFW 289g 34th%ile, placenta posterior, JAGUAR 14cm, Cardiac outflow tracts not well seen. F/U ultrasounds completed FAS. F/U heart structures all seen and normal EFW: 09/16/22: 11% Glucola:125 Influenza: Had this year/works for [employer] TDAP:08/05 COVID: x2 GBS 09/23/22 HSV: positive HSV-2 Breast pump Rx-08/05 MOD:Anticipate . Currently planning on likely induction at 37 weeks, tentative for 09/30/2022 at 7:30 AM. pp contraception:Likely Mirena. pap: 03/20/2020 Normal Initial GC/CT:04/13- Negative PMH Migraines Joint pain PSH Denies OB History -0-0-2 1. 07/12/2007, 39 weeks, 08/16/2016, 39 weeks, , 3790 g SH Denies tobacco, alcohol, drugs Family History Father: Colon cancer Maternal grandmother: Diabetes, heart disease Paternal grandmother: Heart disease Maternal grandfather: Heart disease Paternal grandfather: Heart disease Allergies Sulfa: Rash Medications Nifedipine 30 mg once daily vitamins Physical exam: General: Alert, oriented, no acute distress Head: Normal cephalic atraumatic Eyes: PERRLA, extraocular motions intact. Respiratory: Normal rate of respiration. No accessory muscle use, normal respiratory effort. Cardiovascular: Regular rate and rhythm Abdomen: Gravid, nontender, nondistended Extremities: Normal range of motion Neuro: Oriented x3. Normal movements Psych: Appropriate mood and affect. Normal judgment and insight SVE: 0/0/-3 FHT: 125 bpm baseline, moderate variability, accelerations present, no decelerations. Category 1. [place]: Quiescent Plan 31-year-old -0-0-2 at 37 weeks 0 days gestation was admitted for induction of labor 1. Induction of labor -Plan to begin with misoprostol -Epidural at patient's request 2. 37 weeks gestation -Continuous monitoring 3. Gestational hypertension -Continue nifedipine 30 mg daily 4. GBS positive -Plan for ampicillin for GBS sepsis prophylaxis Meds/Allgy - Allergies Allergies/Adverse Reactions: Allergies Allergy/AdvReac Type Severity Reaction Status Date / Time Sulfa (Sulfonamide Allergy Rash Verified 06/21/18 11:40 Antibiotics) Plan for Labor - Plan For Labor I expect patient to be DC'd or transferred within 96 hours.: Yes
[2022-09-30] MEDS: AMPICILLIN 2 GM in SODIUM CHLORIDE 0.9% MINIBAG 100 ML IV ONE ×2 (08:41→10:16)
[2022-09-30 08:54] LABS: ALBUMIN 2.9 g/dL (3.2-5.5); ALBUMIN/GLOBULIN RATIO 0.9 (1.0-2.2); BILIRUBIN,TOTAL 0.5 mg/dL (0.2-1.0); CALCIUM 9.4 mg/dL (8.5-10.3); CREATININE 0.5 mg/dL (0.4-1.0); POTASSIUM 3.7 mmol/L (3.5-5.0); TOTAL PROTEIN 6.2 g/dL (6.7-8.2)
[2022-09-30] MEDS ORDERED: NIFEdipine ER 30 MG TABLET PO SCH (09:00)
[2022-09-30] MEDS: miSOPROStoL 100 MCG TABLET BC SCH ×4 (10:24→22:44)
[2022-09-30] MEDS ORDERED: AMPICILLIN 1 GM in SODIUM CHLORIDE 0.9% MINIBAG 100 ML IV SCH (13:00)
--- NOTE | 2022-09-30 17:54 | PROVIDER PROGRESS NOTE ---
Labor Progress Note - Uterine Monitoring Uterine Monitoring Mode: positive: External toco Contraction Frequency (min/apart): quiescent - Monitoring Monitor Mode: positive: External ultrasound Heart Rate Baseline: 130 Heart Rate Variability: positive: Moderate (6-25 bmp) Accelerations: positive: Present, 15x15 Decelerations: positive: None Strip Review: positive: Category I - Vaginal Exam Dilation (in cm): 0 Effacement (%): 0 Station: -3 Cervical Position: Posterior - Labor Progress Note Labor Progress Note/Additional Text: Patient remains unchanged. Plan to continue misoprostol. Currently category 1 tracing.
[2022-09-30] MEDS: NIFEdipine ER 30 MG TABLET PO SCH (20:03)
[2022-10-01] MEDS: SODIUM CHLORIDE FLUSH 0.9% 10 ML SYRINGE IVP SCH ×4 (03:00→23:55)
[2022-10-01] MEDS: miSOPROStoL 100 MCG TABLET BC SCH ×2 (03:00→07:36)
[2022-10-01] MEDS ORDERED: miSOPROStoL 100 MCG TABLET BC ONE ×2 (08:30→12:30)
--- NOTE | 2022-10-01 12:59 | PROVIDER PROGRESS NOTE ---
Labor Progress Note - Uterine Monitoring Uterine Monitoring Mode: positive: External toco Contraction Frequency (min/apart): 6 Contraction Intensity: positive: Mild Uterine Resting Tone: positive: Soft - Monitoring Monitor Mode: positive: External ultrasound Heart Rate Baseline: 110-160 Heart Rate Variability: positive: Moderate (6-25 bmp) Accelerations: positive: Present, 15x15 Decelerations: positive: None Strip Review: positive: Category I - Vaginal Exam Dilation (in cm): 1 Effacement (%): 50 Station: -3 Cervical Position: Midposition - Labor Progress Note Labor Progress Note/Additional Text: 31yo at 37.1 admitted for IOL for GHTN - S/p misoprostol 25mcg x5, last dose increased to 50mcg. Still 1cm now, will plan for 50mcg now. If ripened, will start Pitocin next. - Cat 1 - Continue nifedipine 30 qd for GHTN - Anticipate today
[2022-10-01] MEDS: LACTATED RINGERS 1,000 ML IV SCH ×2 (16:38→22:41)
[2022-10-01] MEDS ORDERED: AMPICILLIN 2 GM in SODIUM CHLORIDE 0.9% MINIBAG 100 ML IV ONE (17:00)
[2022-10-01] MEDS ORDERED: OXYTOCIN/SODIUM CHLORIDE 500 ML IV SCH (17:00)
--- NOTE | 2022-10-01 18:38 | ANESTHESIA ---
Pre-Anesthesia VS, & Labs - Diagnosis Term labor, IUP - Procedure epidural for Vital Signs: Temp Pulse Resp BP Pulse Ox O2 Flow Rate 36.7 C 09/30/22 19:42 Height: 5 ft 9 in Weight (kg): 113.852 kg Body Mass Index: 37.0 BMI Classification: Obese - NPO Last Fluid Intake: t/o day Last Food Intake: full lunch - Is Patient ?: Yes - Lab Results Current Lab Results: Laboratory Tests 09/30/22 08:30: Sodium 136, Potassium 3.7, Chloride 103, Carbon Dioxide 19 L, Anion Gap 14.0 H, BUN 7, Creatinine 0.5, Estimated GFR (MDRD) 144, Glucose 90, Calcium 9.4, Total Bilirubin 0.5, AST 18, ALT 11, Alkaline Phosphatase 86, Total Protein 6.2 L, Albumin 2.9 L, Globulin 3.3, Albumin/Globulin Ratio 0.9 L 09/30/22 07:57: Blood Type A POSITIVE, Antibody Screen NEGATIVE 09/30/22 07:57: WBC 10.7, RBC 4.37, Hgb 12.9, Hct 39.2, MCV 89.7, MCH 29.5, MCHC 32.9, RDW 12.4, Plt Count 206, MPV 10.9 H, Neut # (Auto) 8.0 H, Lymph # (Auto) 1.9, [place] # (Auto) 0.7, Eos # (Auto) 0.1, Baso # (Auto) 0.0, Absolute Nucleated RBC 0.00, Nucleated RBC % 0.0 Lab results reviewed: Yes Fish Bones: 09/30/22 07:57 09/30/22 08:30 Home Medications and Allergies Active Medications Carboprost Tromethamine (Carboprost Tromethamine 250 Mcg/Ml Amp) 250 mcg IM .ONCE PRN PRN Reason: Hemorrhage Fentanyl (Fentanyl 100 Mcg/2 Ml Vial) 50 mcg IVP Q1H PRN PRN Reason: Severe Pain (score 7-10) Hydralazine HCl (Hydralazine Inj 20 Mg/Ml Vial) 10 mg IVP .ONCE PRN; Protocol PRN Reason: SBP> or= 160 OR DBP> or= 110 Hydralazine HCl (Hydralazine Inj 20 Mg/Ml Vial) 5 - 10 mg IVP Q20M PRN; Protocol PRN Reason: SBP> or= 160 OR DBP> or= 110 Oxytocin/Sodium Chloride (Pitocin/Sodium Chloride) 500 mls @ 999 mls/hr IV PRN PRN; Protocol PRN Reason: POST- HEMORR PREVENTION Tranexamic Acid (Tranexamic 1,000 Mg/100ml-Nacl) 1,000 mg in 100 mls @ 600 mls/hr IV Q30M PRN PRN Reason: EBL >1200mL and within 3hr Lactated Ringer's (Lr) 1,000 mls @ 125 mls/hr IV .Q8H MARLENE Last Admin: 10/01/22 16:38 Dose: 125 mls/hr Ampicillin Sodium 1 gm/ Sodium (Chloride) 100 mls @ 200 mls/hr IV Q4H MARLENE Oxytocin/Sodium Chloride (Pitocin/Sodium Chloride) 500 mls @ 1 mls/hr IV TITR MARLENE; Protocol Last Admin: 10/01/22 16:37 Dose: 2 milliunit/min, 2 mls/hr Labetalol HCl (Labetalol 20 Mg/4 Ml Syringe) 20 mg IVP .ONCE PRN; Protocol PRN Reason: SBP> or= 160 OR DBP> or= 110 Labetalol HCl (Labetalol 20 Mg/4 Ml Syringe) 20 - 80 mg IVP Q10M PRN; Protocol PRN Reason: SBP> or= 160 OR DBP> or= 110 Labetalol HCl (Labetalol 20 Mg/4 Ml Syringe) 20 - 40 mg IVP Q10M PRN; Protocol PRN Reason: SBP> or= 160 OR DBP> or= 110 Lidocaine HCl (Lidocaine 1% 20 Ml Mdv) 20 ml ID .ONCE PRN PRN Reason: PERINEAL REPAIR Stop: 10/03/22 08:35 Methylergonovine Maleate (Methylergonovine 0.2 Mg/Ml Vial) 0.2 mg IM .ONCE PRN PRN Reason: Hemorrhage Misoprostol (Misoprostol 200 Mcg Tablet) 600 mcg BC .ONCE PRN PRN Reason: Hemorrhage Misoprostol (Misoprostol 200 Mcg Tablet) 800 mcg NM .ONCE PRN PRN Reason: Hemorrhage Misoprostol (Misoprostol 100 Mcg Tablet) 25 mcg BC Q4H [facility] Last Admin: 10/01/22 07:36 Dose: 25 mcg Nifedipine (Nifedipine 10 Mg Capsule) 10 - 20 mg PO Q20M PRN; Protocol PRN Reason: SBP> or= 160 OR DBP> or= 110 Nifedipine (Nifedipine Er 30 Mg Tablet) 30 mg PO DAILY [facility] Last Admin: 09/30/22 20:03 Dose: 30 mg Oxytocin (Oxytocin 10 Unit/Ml Vial) 10 unit IM .ONCE PRN PRN Reason: Step One if no IV access. Sodium Chloride (Sodium Chloride Flush 0.9% 10 Ml Syringe) 10 ml IVP Q8H [facility] Last Admin: 10/01/22 03:00 Dose: 10 ml Sodium Chloride (Sodium Chloride Flush 0.9% 10 Ml Syringe) 10 ml IVP PRN PRN PRN Reason: NEEDED PER PROVIDER ORDERS Terbutaline Sulfate (Terbutaline 1 Mg/Ml Vial) 0.25 mg SUBQ .ONCE PRN PRN Reason: Tachystole Allergies/Adverse Reactions: Allergies Allergy/AdvReac Type Severity Reaction Status Date / Time Sulfa (Sulfonamide Allergy Rash Verified 06/21/18 11:40 Antibiotics) Anes History & Medical History - Anesthetic History Anesthesia Complications: reports: Other-see comment (Hx of PDPH following wet- tap epidural. Blood patch on day 3 post delivery[facility]") Family history of Anesthesia Complications: Denies Family history of Malignant Hyperthermia: Denies - Medical History Cardiovascular: reports: None, Hypertension (during ) Pulmonary: reports: None Gastrointestinal: reports: None Urinary: reports: None Musculoskeletal: reports: None Endocrine/Autoimmune: reports: None Skin: reports: None Smoking Status: Never smoker - Obstetrical History : 3 Parity: 2 Complications: reports: induced HTN Exam General: Alert, Oriented x3, Cooperative Dental: WNL Mouth Openin Fingerbreadth Neck Mobility: Normal Mallampati classification: II Thyromental Distance: 4-6 cm Respiratory: No respiratory distress Cardiovascular: Regular rate Neurological: Normal gait, Normal speech Mental/Cognitive Status: Alert/Oriented X3, Normal for patient Cognitive Status: Within normal limits Plan Anesthesia Type: Epidural Consent for Procedure(s) Verified and Reviewed: Yes Code Status: Attempt Resuscitation ASA classification: 2-Mild systemic disease Is this case an emergency?: No
[2022-10-01] MEDS ORDERED: ROPIVACAINE 0.2% 200 MG/100 ML BAG EP ONE (19:46)
[2022-10-01] MEDS ORDERED: LACTATED RINGERS 500 ML IV ONE (20:15)
[2022-10-01] MEDS: NIFEdipine ER 30 MG TABLET PO SCH (20:51)
[2022-10-01] MEDS ORDERED: diphenhydrAMINE INJ 50 MG/ML VIAL IVP PRN (21:15)
[2022-10-01] MEDS ORDERED: METOCLOPRAMIDE 10 MG/2 ML VIAL IVP PRN (21:15)
[2022-10-01] MEDS ORDERED: NALBUPHINE 10 MG/ML AMP IVP PRN (21:15)
[2022-10-01] MEDS ORDERED: NALOXONE 0.4 MG/ML VIAL IVP PRN (21:15)
[2022-10-01] MEDS ORDERED: ONDANSETRON 4 MG/2 ML VIAL IVP PRN (21:15)
[2022-10-01] MEDS ORDERED: ePHEDrine 50 MG/ML VIAL IVP PRN (21:15)
--- NOTE | 2022-10-01 21:40 | PROVIDER PROGRESS NOTE ---
Labor Progress Note - Uterine Monitoring Uterine Monitoring Mode: positive: External toco Contraction Frequency (min/apart): 2 Contraction Intensity: positive: Moderate Uterine Resting Tone: positive: Soft - Monitoring Monitor Mode: positive: External ultrasound Heart Rate Baseline: 130 Heart Rate Variability: positive: Moderate (6-25 bmp) Accelerations: positive: Present, 15x15 Decelerations: positive: Early Strip Review: positive: Category I - Vaginal Exam Dilation (in cm): 5 Effacement (%): 100 Station: -1 Cervical Position: Midposition - Labor Progress Note Labor Progress Note/Additional Text: 31yo at 37.1w admitted for IOL for GHTN - S/p misoprostol, and now on Pitocin 10mu - GBS pos, ampicillin x2 given - AROM, clear 1845 - Epidural ~1999 - Anticipate
[2022-10-01] MEDS ORDERED: HYDROCORTISONE 1% CREAM 28 GM TUBE PR PRN (23:30)
[2022-10-01] MEDS ORDERED: WITCH HAZEL/GLYCERIN 1 PAD TOP PRN (23:30)
--- NOTE | 2022-10-01 23:36 | DELIVERY NOTE ---
Delivery Note - Labor Labor: positive: Augmented by oxytocin - Delivery Method Delivery Method: positive: Spontaneous vaginal delivery - Cervical Ripening Method Cervical Ripening Method: positive: Misoprostil - Presentation Presentation: positive: Vertex, SOHAIL - right occiput anterior - Nuchal Cord Nuchal Cord: positive: Present (x1, reduced) - Anesthetic Anesthetic Type: - Laceration Laceration: positive: 1st degree - Delivery Outcome Delivery Outcome: positive: Livebirth - [place]: positive: Placed in direct skin contact with mother, Bulb syringe, Stimulated, Warmed, [place] used sex: positive: Female - Cord Cord: positive: 3 vessels - Placenta Placenta: positive: Intact, Spontaneous - Estimated Blood Loss Estimated Blood Loss (in cc): 150 - Post Delivery Events Post Delivery Events: positive: No post delivery events - Delivery Comments (Free Text/Narrative) Delivery Comments (Free Text/Narrative): 10/100/+1 and maternal pushing with good efforts. Head delivered with two contractions, JUAN. Body delivered with ease. Nuchal cord x1 reduced after delivery. Baby placed on mother's abdomen. Delayed cord clamping. Fundus firm. Placenta delivered spontaneously and intact, 3vc. Vagina and perineum inspected. 1st degree vaginal laceration noted, not bleeding and not requiring repair. EBL 150cc. Family doing well bonding at bedside.
[2022-10-01] MEDS ORDERED: LACTATED RINGERS 1,000 ML IV SCH (23:45)
[2022-10-02] MEDS: ACETAMINOPHEN 500 MG TABLET PO SCH ×4 (02:49→23:15)
[2022-10-02] MEDS: IBUPROFEN 800 MG TABLET PO SCH ×4 (02:50→19:48)
[2022-10-02 06:56] LABS: ALBUMIN 2.7 g/dL (3.2-5.5); ALBUMIN/GLOBULIN RATIO 0.9 (1.0-2.2); BILIRUBIN,TOTAL 0.6 mg/dL (0.2-1.0); CREATININE 0.5 mg/dL (0.4-1.0); TOTAL PROTEIN 5.8 g/dL (6.7-8.2); URIC ACID 4.6 mg/dL (2.6-7.2)
[2022-10-02 07:25] LABS: BASOPHILS % (AUTO) 0.2 %; EOSINOPHILS % (AUTO) 0.2 %; HCT - HEMATOCRIT 37.8 % (37.0-47.0); HGB - HEMOGLOBIN 12.5 g/dL (12.0-16.0); LYMPHOCYTES # (AUTO) 2.2 10^3/uL (1.5-3.5); LYMPHOCYTES % (AUTO) 12.1 %; MEAN CORPUSCULAR HGB CONC 33.1 g/dL (32.0-36.0); MEAN CORPUSCULAR VOLUME 90.6 fL (81.0-99.0); MEAN PLATELET VOLUME 11.2 fL (7.9-10.8); MONOCYTES # (AUTO) 1.3 10^3/uL (0.0-1.0); NEUTROPHILS # (AUTO) 14.3 10^3/uL (1.5-6.6); PLT - PLATELET COUNT 214 10^3/uL (130-450); RED BLOOD COUNT 4.17 10^6/uL (4.20-5.40); RED CELL DISTRIBUTION WIDTH 12.6 % (12.0-15.0); WHITE BLOOD COUNT 17.9 x10^3/uL (4.8-10.8)
[2022-10-02] MEDS: SODIUM CHLORIDE FLUSH 0.9% 10 ML SYRINGE IVP SCH ×2 (07:33→07:39)
[2022-10-02] MEDS: LACTATED RINGERS 1,000 ML IV SCH (07:34)
[2022-10-02] MEDS: miSOPROStoL 100 MCG TABLET BC SCH (07:35)
--- NOTE | 2022-10-02 10:00 | PROVIDER PROGRESS NOTE ---
Subjective - Prog Note Date Prog Note Date: 10/02/22 - Subjective Subjective: Subjective Patient reports she is doing well. Lochia appropriate. Denies heavy bleeding. Ambulating. Pelvic and abdominal pain well-controlled. Tolerating oral intake. Diet: Regular. Voiding without difficulty. Passing flatus. Denies BM. Patient is bonding with baby in room Breast feeding going well. Denies feeling lightheaded, dizzy or excessively fatigued. Objective General: Alert, oriented, no apparent distress. Cardiovascular: Regular rate. Regular rhythm. Lungs: No increased work of breathing. Abdomen: Uterus firm. Below umbilicus. No guarding or rebound. Extremities: No pain on palpation. No cords palpated. Distal pulses intact. Assessment and Plan day 1. -Routine care -Anticipate discharge tomorrow Gestational hypertension -Blood pressure remains elevated but nonsevere. -Continue nifedipine. Objective - Vital Signs/Intake & Output Vital Signs: Vital Signs x48h Temp Pulse Resp BP Pulse Ox 10/02/22 08:09 98.4 F 80 18 147/89 H 100 10/02/22 06:15 98.6 F 86 18 139/86 H 99 10/02/22 02:15 98.4 F 91 16 142/78 H 100 Intake & Output: Intake & Output 09/29/22 09/30/22 10/01/22 10/02/22 23:59 23:59 23:59 23:59 Intake Total 2456.250 Output Total 100 550 Balance 2356.250 -550 - Lab Results Fish Bones: 10/02/22 06:33 10/02/22 06:33 Other Labs: Lab Results x24hrs 10/02/22 10/02/22 Range/Units 06:33 06:33 WBC 17.9 H (4.8-10.8) x10^3/uL RBC 4.17 L (4.20-5.40) 10^6/uL Hgb 12.5 (12.0-16.0) g/dL Hct 37.8 (37.0-47.0) % MCV 90.6 (81.0-99.0) fL MCH 30.0 (27.0-31.0) pg MCHC 33.1 (32.0-36.0) g/dL RDW 12.6 (12.0-15.0) % Plt Count 214 (130-450) 10^3/uL MPV 11.2 H (7.9-10.8) fL Neut # (Auto) 14.3 H (1.5-6.6) 10^3/uL Lymph # (Auto) 2.2 (1.5-3.5) 10^3/uL [place] # (Auto) 1.3 H (0.0-1.0) 10^3/uL Eos # (Auto) 0.0 (0.0-0.7) 10^3/uL Baso # (Auto) 0.0 (0.0-0.1) 10^3/uL Absolute Nucleated RBC 0.00 x10^3/uL Nucleated RBC % 0.0 /100WBC Sodium 135 (135-145) mmol/L Potassium 4.0 (3.5-5.0) mmol/L Chloride 104 (101-111) mmol/L Carbon Dioxide 22 (21-32) mmol/L Anion Gap 9.0 (6-13) BUN 7 (6-20) mg/dL Creatinine 0.5 (0.4-1.0) mg/dL Estimated GFR (MDRD) 144 (>89) Glucose 85 (70-100) mg/dL Uric Acid 4.6 (2.6-7.2) mg/dL Calcium 9.0 (8.5-10.3) mg/dL Total Bilirubin 0.6 (0.2-1.0) mg/dL AST 15 (10-42) IU/L ALT 10 (10-60) IU/L Alkaline Phosphatase 102 (42-121) IU/L Total Protein 5.8 L (6.7-8.2) g/dL Albumin 2.7 L (3.2-5.5) g/dL Globulin 3.1 (2.1-4.2) g/dL Albumin/Globulin Ratio 0.9 L (1.0-2.2)
[2022-10-02] MEDS: DOCUSATE SODIUM 100 MG CAPSULE PO SCH ×2 (13:40→23:16)
[2022-10-02] MEDS: NIFEdipine ER 30 MG TABLET PO SCH (19:48)
[2022-10-03] MEDS: IBUPROFEN 800 MG TABLET PO SCH ×2 (02:01→09:41)
[2022-10-03 09:41] VITALS: BP 146/85
[2022-10-03] MEDS: DOCUSATE SODIUM 100 MG CAPSULE PO SCH (09:41)
[2022-10-03] MEDS: ACETAMINOPHEN 500 MG TABLET PO SCH (09:42)
--- NOTE | 2022-10-03 09:56 | Discharge Plan ---
Discharge Plan Problem Reviewed?: Yes Disposition: Home, Self Care Condition: Good Diet: Regular Activity Restrictions: No Restrictions Shower Restrictions: No Instruction Topics: Vaginal After Additional Instructions or Follow Up instructions: Take ibuprofen 600 mg every 6 hours and 1000 mg acetaminophen every 6 hours alternating for pain as needed. Patent attention to depression as this can affect anyone. Please be honest with your loved ones and your provider if you start experiencing any depressive symptoms. No Smoking: If you smoke, Please STOP! Call for help. Follow-up with: Matthew Patterson MD [Provider Admit Priv/Credential] -
--- NOTE | 2022-10-03 09:56 | DISCHARGE SUMMARY ---
"Discharge Summary Admit Date: 09/30/22 Discharge Date: 10/03/22 Discharging Provider: Matthew Patterson MD Code Status: Attempt Resuscitation Condition at Discharge: Good Discharge Disposition: 01 Home, Self Care - DIAGNOSES Admission Diagnoses: 37 weeks gestation Gestational hypertension GBS positive Discharge Diagnoses with Status of Each Condition: 37 weeks gestation: Delivered Gestational hypertension: Stable GBS positive: Delivered Delivery of live jha - HPI History of Present Illness: Subjective Patient reports she is doing well. Lochia appropriate. Denies heavy bleeding. Ambulating. Pelvic and abdominal pain well-controlled. Tolerating oral intake. Diet: Regular. Voiding without difficulty. Passing flatus. Denies BM. Patient is bonding with baby in room Breast feeding going well. Denies feeling lightheaded, dizzy or excessively fatigued. Objective General: Alert, oriented, no apparent distress. Cardiovascular: Regular rate. Regular rhythm. Lungs: No increased work of breathing. Abdomen: Uterus firm. Below umbilicus. No guarding or rebound. Extremities: No pain on palpation. No cords palpated. Distal pulses intact. - CONSULTS | PROCEDURES Procedures: Spontaneous vaginal delivery - HOSPITAL COURSE Hospital Course: Patient was admitted at 37 weeks gestation for just induction of labor for gestational hypertension. Blood pressure remained under good control throughout her stay. She had a long induction of misoprostol followed by oxytocin and amniotomy. She went on to have an uncomplicated vaginal delivery. course was uneventful and she was discharged on day 2 with her . She was counseled on recovery and risk of depres jocelyn. She will also continue her nifedipine and eventually plan to wean. - ALLERGIES Allergies/Adverse Reactions: Allergies Allergy/AdvReac Type Severity Reaction Status Date / Time Sulfa (Sulfonamide Allergy Rash Verified 06/21/18 11:40 Antibiotics) - LABS Result Diagrams: 10/02/22 06:33 10/02/22 06:33 - FOLLOW UP Follow Up: With Matthew Patterson MD in 1 week at [facility]. - TIME SPENT Time Spent in Discharge (Minutes): 20"
--- NOTE | 2022-10-03 13:59 | Labor Flowsheet ---
Labor Flowsheet Datetime Report Generated by CPN: 10/03/2022 13:59 Datetime: 10/03/2022 09:39 VITAL SIGNS NBP Sys/Supriya/Mean (mmHg): 146 : 85 : 99 Pulse: 69 Datetime: 10/03/2022 05:39 SpO2 (%): 99 Datetime: 10/01/2022 23:30 Stage of : Recovery Datetime: 10/01/2022 23:20 MEDICATIONS Pitocin (milliunits): Increased to @ 999 Medication Comments: PP PITOCIN Datetime: 10/01/2022 23:16 STAGE 2 Stage 2 Comments: DELIVERED Datetime: 10/01/2022 23:15 Contraction Comments: pushing with contractions LaborFlag: Labor Datetime: 10/01/2022 23:04 VAGINAL EXAM Dilatation (cm): 10.0 Exam by: Dr. Cayabyab Vaginal Exam Comments: Complete Datetime: 10/01/2022 23:00 Comments: possible early accel Datetime: 10/01/2022 22:41 Patient Care Comments: new bag LR @ 125ml/hr Datetime: 10/01/2022 22:25 Antiemetics/Antacids: Other Antiemetic/Antacid @ 4 mg/2ml Datetime: 10/01/2022 22:00 Temperature (C): 36.6 Datetime: 10/01/2022 21:32 Effacement (%): 100 Datetime: 10/01/2022 21:31 COMMUNICATION Communication: Provider at Bedside Datetime: 10/01/2022 21:26 I/O Interventions: Gonzalez Cath Inserted Datetime: 10/01/2022 20:39 Patient Position/Activity: Right Tilt; Semi-Fowlers Datetime: 10/01/2022 20:38 Antibiotics: Ampicillin IV 1 Gm Datetime: 10/01/2022 20:15 Membrane Comments: unable to assess, pt. sitting for epidural Datetime: 10/01/2022 20:11 ANESTHESIA Epidural Procedure: Completed Datetime: 10/01/2022 19:54 PATIENT CARE IV/Blood Work: IV Bolus Started Datetime: 10/01/2022 19:47 Anesthesia Comments: [employer]LECT[employer] bedside Datetime: 10/01/2022 19:15 UTERINE ACTIVITY Monitor Mode: External Frequency (min): 2-2.5 Quality: Moderate Duration (sec): 50-70 Pattern: Normal: <= 5 Contractions in 10 Minutes Resting Tone (Palpate): Relaxed Pitocin Checklist: At Least 1 Acceleration of 15 bpm x 15 Seconds in 30 Minutes or Adequate Variabi lity; No More than 1 Late Deceleration Occurred in Past 30 Minutes; No More than 2 Variable Decelerat ions > 60 Seconds in Duration and decreasing >60 bpm in 30 minutes; No More than 5 Uterine Contractio ns in 10 Minutes for any 20 Minute Interval; Uterus Palpates Soft between Contractions ASSESSMENT A Monitor Mode: Telemetry FHR Baseline Rate : 130 Variability: Moderate 6-25 bpm Accelerations: None Decelerations: None Category: Category I Datetime: 10/01/2022 19:00 Monitor Interventions for UA: [place] Adjusted Datetime: 10/01/2022 18:45 Membrane Status: Ruptured Membranes Rupture Method: Artificial Amniotic Fluid Color: Clear Amniotic Fluid Amount: Scant Datetime: 10/01/2022 18:44 Station: -2 Datetime: 10/01/2022 16:17 Vaginal Bleeding: None Cervix, Consistency: Soft Datetime: 10/01/2022 15:33 Monitor Interventions for FHR: Ultrasound Adjusted Datetime: 10/01/2022 14:40 FHR Baseline Changes: No Baseline Change Datetime: 10/01/2022 14:24 Respirations: 16 PAIN Pain Scale: 0 Pain Presence: None/Denies Datetime: 10/01/2022 14:00 MATERNAL ASSESSMENT Level of Consciousness: Alert DTR's/Clonus: DTRs 1+; No Clonus Headache: Denies RUQ Epigastric Pain: Denies Datetime: 10/01/2022 13:41 Communication Comments: Pt at bedside, EFM adjusted Datetime: 10/01/2022 12:50 Cervical Ripening Agents: Cytotec @ Datetime: 10/01/2022 08:28 Provider Reviewed Strip: Yes Notification Reason: Status Update Datetime: 10/01/2022 07:42 Breath Sounds, Left: Clear and Equal Breath Sounds, Right: Clear and Equal Nausea/Vomiting: Denies Datetime: 10/01/2022 05:34 Pain Type: Cramping; Contraction Pain Location: Abdomen Pain Goal: 4 Pain Relief Measures: Comfort Measures Pain Coping: Sleeping Datetime: 10/01/2022 04:30 Connect Comments: RNC Spear Datetime: 10/01/2022 02:57 Temperature Route: Oral Datetime: 10/01/2022 02:53 Cervix, Position: Posterior Datetime: 10/01/2022 02:01 Comfort Measures: Breathing/Relaxation; Family Support Datetime: 10/01/2022 01:12 Pain Assessment Comments: mild intermittent Datetime: 09/30/2022 23:30 TEACHING Instructional Method: Verbal; Patient Instructed; Verbalized Understanding Plan of Care: Plan of Care Discussed; Induction; Gestational Hypertension/Preeclampsia/Eclampsia Unit Routine: Unit Personnel; Monitoring Pain Management: Pain Scale/Goals; Comfort Measures Datetime: 09/30/2022 19:06 Strip Reviewed by: RN Harper/RN Hayes Datetime: 09/30/2022 18:57 Oxygen Method: Room Air Datetime: 09/30/2022 10:15 Provider Notified (Name): Dr. Patterson
== END 2022-10-03 13:55 | disposition home or self-care (01) | DRG 807 ==
LOC: WFO 07:30 → FBP 07:31 → WFO 08:33 → FBP 08:34
PROVIDERS: ADMIT Obstetrics & Gynecology; ATTEND Obstetrics & Gynecology
PROC: 3E0DXGC Introduction of Other Therapeutic Substance into Mouth and Pharynx, External Approach (ICD-10-PCS; 2022-09-30)
PROC: 10907ZC Drainage of Amniotic Fluid, Therapeutic from Products of Conception, Via Natural or Artificial Opening (ICD-10-PCS; principal; 2022-10-01)
PROC: 10E0XZZ Delivery of Products of Conception, External Approach (ICD-10-PCS; 2022-10-01)
PROC: 3E033VJ Introduction of Other Hormone into Peripheral Vein, Percutaneous Approach (ICD-10-PCS; 2022-10-01)
DX: O13.4 Gestational [pregnancy-induced] hypertension without significant proteinuria, complicating childbirth (principal); Z37.0 Single live birth; O99.824 Streptococcus B carrier state complicating childbirth; O99.62 Diseases of the digestive system complicating childbirth; O69.81X0 Labor and delivery complicated by cord around neck, without compression, not applicable or unspecified; O71.4 Obstetric high vaginal laceration alone; Z3A.37 37 weeks gestation of pregnancy; K21.9 Gastro-esophageal reflux disease without esophagitis; O99.214 Obesity complicating childbirth
CPT/HCPCS: 36415; 80053; 84550; 85025; 86850; 86900; 86901; A9270; J7120

== ENCOUNTER 2023-07-27 09:06 | Outpatient (CLI) | payer MEDICAID ==
[2023-07-27 12:16] LABS: ALBUMIN 4.4 g/dL (3.2-5.5); ALBUMIN/GLOBULIN RATIO 1.8 (1.0-2.2); ALKALINE PHOSPHATASE 107 IU/L (42-121); ALT ALANINE AMINOTRANSFERASE 64 IU/L (10-60); AST ASPARTATE AMINOTRANSFERASE 38 IU/L (10-42); BILIRUBIN,TOTAL 0.4 mg/dL (0.2-1.0); BUN - BLOOD UREA NITROGEN 13 mg/dL (6-20); CALCIUM 9.8 mg/dL (8.5-10.3); CARBON DIOXIDE - CO2 30 mmol/L (21-32); CHLORIDE 103 mmol/L (101-111); CHOL/HDL RATIO 3.4 (<4.4); CHOLESTEROL 179 mg/dL; CREATININE 0.9 mg/dL (0.6-1.3); GFR - MDRD 73 (>89); GLUCOSE 88 mg/dL (74-104); HDL CHOLESTEROL 52 mg/dL; LDL CHOLESTEROL,CALCULATED 105 mg/dL; POTASSIUM 4.2 mmol/L (3.5-4.5); SODIUM 138 mmol/L (135-145); TOTAL PROTEIN 6.8 g/dL (6.4-8.9); TRIGLYCERIDES 109 mg/dL (48-352); VLDL CHOLESTEROL 22 mg/dL
[2023-07-27 12:22] LABS: ESTIMATED AVERAGE GLUCOSE 94 mg/dL (70-100); HEMOGLOBIN A1c% 4.9 % (4.27-6.07)
[2023-07-27 14:04] LABS: THYROID STIMULATING HORMONE 1.42 uIU/mL (0.34-5.60)
== END 2023-07-27 09:07 | disposition home or self-care (01) ==
LOC: LAB.N 09:06
PROVIDERS: ATTEND Obstetrics & Gynecology
DX: Z13.1 Encounter for screening for diabetes mellitus (principal); Z13.220 Encounter for screening for lipoid disorders; Z13.29 Encounter for screening for other suspected endocrine disorder
CPT/HCPCS: 36415; 80053; 80061; 83036; 83525; 83721; 84443

== ENCOUNTER 2023-08-30 07:14 | Outpatient (CLI) | payer MEDICAID ==
--- NOTE | 2023-08-30 12:44 | Ultrasound Report ---
PROCEDURE: Duplex Ext Veins Bilateral INDICATIONS: Bilateral leg swelling TECHNIQUE: Real-time imaging, as well as color and pulse Doppler interrogation, were performed of the deep veins of both legs from the inguinal ligament to the popliteal fossa. Attempted visualization of the calf veins was performed. COMPARISON: None FINDINGS: The deep veins are normally compressible, and free of intraluminal thrombus. Color and pu lse Doppler demonstrate normal phasic intravascular flow. There is normal augmentation response to d istal compression maneuver. IMPRESSION: No deep venous thrombosis of the visualized lower extremities. Reviewed by: Marilia Ye MD on 08/30/2023 12:43 PM PST Approved by: Marilia Ye MD on 08/30/2023 12:43 PM PST Station ID: [id number]
== END 2023-08-30 07:15 | disposition home or self-care (01) ==
LOC: DI 07:14
PROVIDERS: ATTEND Physician Assistant
DX: R60.0 Localized edema (principal); M25.561 Pain in right knee
CPT/HCPCS: 36415; 80048; 93970

== ENCOUNTER 2023-08-30 07:56 | Outpatient (CLI) | payer MEDICAID ==
[2023-08-30 08:23] LABS: CALCIUM 9.6 mg/dL (8.5-10.3); CREATININE 0.9 mg/dL (0.6-1.3)
--- NOTE | 2023-08-30 16:13 | XRAY Report ---
PROCEDURE: Knee 4+V RT INDICATIONS: KNEE PAIN RIGHT TECHNIQUE: 4 views of the knee(s) were acquired. COMPARISON: None. FINDINGS: Bones: No fractures or dislocations. No suspicious bony lesions. Soft tissues: Minimal knee joint effusion. No suspicious soft tissue calcifications or masses. IMPRESSION: No visualized acute fracture or dislocation. However, occult injury cannot be excluded. Recommend salma rt interval imaging follow-up in 7-10 days as clinically indicated for additional evaluation. Reviewed by: Yareli Pichardo MD on 08/30/2023 4:12 PM PST Approved by: Yareli Pichardo MD on 08/30/2023 4:12 PM PST Station ID: [id number]
== END 2023-08-30 07:57 | disposition home or self-care (01) ==
LOC: DI 07:56
PROVIDERS: ATTEND Physician Assistant
DX: M25.561 Pain in right knee (principal); R60.0 Localized edema
CPT/HCPCS: 36415; 80048

== ENCOUNTER 2023-10-20 08:00 | Outpatient (CLI) | payer MEDICAID ==
[2023-10-20 11:57] LABS: BILIRUBIN,URINE NEGATIVE (NEGATIVE); GLUCOSE, URINE (UA) NEGATIVE (NEGATIVE); KETONES,URINE (UA) NEGATIVE (NEGATIVE); LEUKOCYTE ESTERASE, URINE TRACE (NEGATIVE); NITRITE,URINE NEGATIVE (NEGATIVE); OCCULT BLOOD,URINE TRACE-LYSE (NEGATIVE); PROTEIN,URINE NEGATIVE (NEGATIVE); UROBILINOGEN,URINE 0.2 (NORMAL) E.U./dL (NORMAL)
[2023-10-20 12:07] LABS: BACTERIA,URINE Rare /HPF (None Seen); CLARITY,URINE CLEAR (CLEAR); RBC,URINE None Seen /HPF (0-5); SQUAMOUS EPITHELIAL CELL,UR RARE Squamous (<= Few); WBC,URINE 0-3 /HPF (0-5)
[2023-10-20 16:35] LABS: CREATININE,URINE 24.2 mg/dL
[2023-10-20 16:42] LABS: MICROALBUMIN,URINE < 0.7 mg/dL
== END 2023-10-20 23:59 | disposition home or self-care (01) ==
LOC: LAB.WCP 08:00
PROVIDERS: ATTEND Physician Assistant
DX: E88.810 Metabolic syndrome (principal); M79.89 Other specified soft tissue disorders
CPT/HCPCS: 81001; 82043; 82570; 87086

== ENCOUNTER 2023-10-21 16:03 | Outpatient (CLI) | payer MEDICAID ==
[2023-10-21 20:29] LABS: HCT - HEMATOCRIT 42.2 % (37.0-47.0); HGB - HEMOGLOBIN 13.3 g/dL (12.0-16.0); MEAN CORPUSCULAR HEMOGLOBIN 28.5 pg (27.0-31.0); MEAN CORPUSCULAR HGB CONC 31.5 g/dL (32.0-36.0); MEAN CORPUSCULAR VOLUME 90.6 fL (81.0-99.0); MEAN PLATELET VOLUME 10.4 fL (7.9-10.8); RED BLOOD COUNT 4.66 10^6/uL (4.20-5.40); RED CELL DISTRIBUTION WIDTH 12.6 % (12.0-15.0)
[2023-10-21 20:50] LABS: CALCIUM 9.9 mg/dL (8.5-10.3); CRP - C-REACTIVE PROTEIN 0.7 mg/dL (<0.5); POTASSIUM 3.7 mmol/L (3.5-4.5)
[2023-10-21 23:59] LABS: RHEUMATOID FACTOR NEGATIVE (Negative)
[2023-10-23 20:08] LABS: ANTI-DNA (DS) AB QN 1 IU/mL (0-9)
[2023-10-26 15:08] LABS: ANTINUCLEAR ANTIBODIES IFA Negative (.)
== END 2023-10-21 16:04 | disposition home or self-care (01) ==
LOC: LAB.N 16:03
PROVIDERS: ATTEND Physician Assistant
DX: E88.810 Metabolic syndrome (principal); M79.89 Other specified soft tissue disorders; M25.40 Effusion, unspecified joint; M25.50 Pain in unspecified joint
CPT/HCPCS: 36415; 80048; 81001; 82043; 82570; 85025; 85027; 85651; 86038; 86140; 86225; 86430; 87086